=== PATIENT | female | born 1945 | race Caucasian/White ===

== ENCOUNTER 2017-08-20 12:08 | Observation (INO) | payer OTHER ==
[~2017-08-20] VITALS: Ht 167.6 cm; Wt 181.4 kg
[2017-08-20] MEDS ORDERED: SODIUM CHLORIDE 0.9% 1,000 ML IVB ONE (12:45)
[2017-08-20 13:36] LABS: Basophils # (auto) 0.1 uL; Basophils % (auto) 1.1 % (0.0-2.0); Eosinophils # (auto) 0 uL; Eosinophils % (auto) 0.3 % (0.0-7.0); Hemoglobin 14.7 g/dL (12.2-16.2); Lymphocytes # (auto) 0.6 uL; Lymphocytes % (auto) 11.6 % (10.0-50.0); Mean Corpuscular Hemoglobin 27.1 pg (28.0-32.0); Mean Corpuscular Volume 84.7 fL (80.0-100.0); Monocytes # (auto) 0.8 uL; Neutrophils # (auto) 3.8 uL; Nucleated Red Blood Cells % 0.6 %; Platelet Count (auto) 207 10^3/uL (140-450); Red Blood Cells 5.43 10^6/uL (4.0-5.20); White Blood Cell 5.3 10^3/uL (4.4-10.8)
[2017-08-20 13:37] LABS: Red Cell Distribution Width 20.9 % (11.8-14.3)
[2017-08-20 13:50] LABS: INR 1.14 (0.9-1.15); Partial Thromboplastin Time 28.2 sec (23.78-33.04); Prothrombin Time 12.1 sec (9.27-12.13)
[2017-08-20 13:52] LABS: Albumin 3.1 g/dL (3.4-5.0); Calcium 8.6 mg/dL (8.5-10.1); Potassium 5.2 mmol/L (3.5-5.1)
[2017-08-20 13:54] LABS: BUN/Creatinine Ratio 27.6
[2017-08-20 14:00] LABS: Bilirubin, Total 1.3 mg/dL (0.2-1.0); Total Protein 7.1 g/dL (6.4-8.2)
[2017-08-20 14:04] LABS: Magnesium 2.6 mg/dL (1.6-2.6)
[2017-08-20] MEDS ORDERED: ONDANSETRON HCL 4 MG/2 ML VIAL IV ONE (14:15)
[2017-08-20] MEDS ORDERED: LORazepam 2MG/ML-1ML VIAL IV ONE (14:15)
[2017-08-20 15:33] LABS: Urine Bacteria NONE SEEN /hpf (None Seen); Urine Blood 1+ /uL (Negative); Urine Specific Gravity 1.009 (1.001-1.035); Urine WBC 2 /hpf (0 - 5)
[2017-08-20] MEDS ORDERED: MORPHINE SULFATE 8mg/ml INJ SDV IV ONE (16:45)
[2017-08-20] MEDS ORDERED: MORPHINE SULFATE 4 MG/ML SYR/VIAL ONE (17:08)
[2017-08-20 21:50] VITALS: BP 94/66
== END 2017-08-20 22:35 | disposition short-term general hospital (02) | DRG 392 ==
LOC: ER 12:08 → OVERFLOW 12:09 → ER 22:35
PROVIDERS: ADMIT Family Medicine; ATTEND Family Medicine
DX: R10.9 Unspecified abdominal pain (principal); L89.151 Pressure ulcer of sacral region, stage 1; I11.0 Hypertensive heart disease with heart failure; N19 Unspecified kidney failure; I50.42 Chronic combined systolic (congestive) and diastolic (congestive) heart failure; E11.9 Type 2 diabetes mellitus without complications; E66.01 Morbid (severe) obesity due to excess calories; E87.1 Hypo-osmolality and hyponatremia; E78.5 Hyperlipidemia, unspecified; Z82.49 Family history of ischemic heart disease and other diseases of the circulatory system; Z88.2 Allergy status to sulfonamides; Z79.4 Long term (current) use of insulin
CPT/HCPCS: 36415; 71045; 74176; 80053; 81001; 82962; 83735; 83880; 84484; 85025; 85610; 85730; 93005; 96361; 96374; 96375; 99291; G0378; J2060; J2270; J2405; J7030